=== PATIENT | male | born 1940 | race Caucasian/White ===

== ENCOUNTER 2019-04-28 07:45 | Emergency (ER) | payer MEDICARE, OTHER ==
[~2019-04-28] VITALS: Ht 177.8 cm; Wt 102.1 kg
[~2019-04-28 07:45] MED LIST: ALLO300 PO; AMLO5 PO; ATEN25 PO; Aspir 8181 MG PO; Aspirin EC81 MG PO; BISA5EC; CEPH500 PO; CYAN100; Calcitriol0.25 MCG; DOCU100 PO; DULO60 PO; ENOX120I SC; FISH1000; FISH1000 PO; GLIP5 PO; HYDR1TAB94 PO; LEVFLO500 PO; LOVA40 PO; NIAC500 PO; TOCO400; TOCO400 PO; TRIA80TC TOP; WARF5 PO; ZESTORETIC 20-121 EA PO
[2019-04-28] MEDS ORDERED: ZESTORETIC 20-121 EA (08:04)
[2019-04-28] MEDS ORDERED: LOVA40 (08:04)
[2019-04-28] MEDS ORDERED: GLIP5ER PO (08:04)
[2019-04-28] MEDS ORDERED: ATEN25 PO (08:04)
[2019-04-28] MEDS ORDERED: CLOP75 PO (08:05)
[2019-04-28] MEDS ORDERED: DULO30 PO (08:05)
[2019-04-28 08:10] LABS: BASOPHILS ABSOLUTE AUTO 0.03 K/mm3 (0.00-0.23); BASOPHILS PERCENT AUTO 1 % (0-2); EOSINOPHILS ABSOLUTE AUTO 0.13 K/mm3 (0.00-0.68); EOSINOPHILS PERCENT AUTO 2 % (0-6); Hematocrit 47.7 % (37.0-53.0); IMMATURE GRAN ABSOLUTE AUTO 0.03 K/mm3 (0.00-0.10); IMMATURE GRAN PERCENT AUTO 1 % (0-1); LYMPHOCYTES ABSOLUTE AUTO 0.74 K/mm3 (0.84-5.20); LYMPHOCYTES PERCENT AUTO 13 % (21-46); MONOCYTES ABSOLUTE AUTO 0.48 K/mm3 (0.16-1.47); MONOCYTES PERCENT AUTO 8 % (4-13); Mean Corpuscular HGB 35.8 pg (26.0-34.0); Mean Corpuscular HGB Conc 33.5 g/dL (31.5-36.5); Mean Corpuscular Volume 107 fL (80-100); Mean Platelet Volume 9.8 fL (9.1-12.4); NEUTROPHILS ABSOLUTE AUTO 4.36 K/mm3 (1.96-9.15); NEUTROPHILS PERCENT AUTO 76 % (41-73); Platelet Count 127 K/mm3 (150-400); RDW Coefficient Variation 13.5 % (11.7-14.2); RDW Standard Deviation 53.7 fL (35.1-46.3); Red Blood Cell Count 4.47 M/mm3 (4.30-5.90); White Blood Cell Count 5.77 K/mm3 (4.00-11.30)
[2019-04-28 09:19] LABS: Albumin, Blood 3.7 g/dL (3.4-5.0); Albumin/Globulin Ratio 1.1 (0.8-1.8); Bilirubin, Total 0.7 mg/dL (0.1-1.0); Bun/Creatinine Ratio 16.7 (12.0-20.0); Calcium, Blood 9.1 mg/dL (8.5-10.1); Creatinine, Blood 1.32 mg/dL (0.60-1.20); Globulin, Blood 3.5 g/dL (2.2-4.0); Magnesium, Blood 1.8 mg/dL (1.6-2.4); Potassium, Blood 4.2 mmol/L (3.5-5.5); Total Protein, Blood 7.2 g/dL (6.4-8.2)
== END 2019-04-28 10:40 | disposition home or self-care (01) ==
LOC: ER 07:45
PROVIDERS: Emergency Medicine
DX: I48.91 Unspecified atrial fibrillation (principal); Z79.899 Other long term (current) drug therapy; Z86.73 Personal history of transient ischemic attack (TIA), and cerebral infarction without residual deficits; E11.9 Type 2 diabetes mellitus without complications; I10 Essential (primary) hypertension; Z87.891 Personal history of nicotine dependence
CPT/HCPCS: 80053; 83735; 85025; 93005; 93010; 99284-25

== ENCOUNTER 2019-09-06 06:53 | Day surgery (SDC) | payer MEDICARE, OTHER ==
[~2019-09-06] VITALS: Ht 177.8 cm; Wt 102.0 kg
[~2019-09-06 06:53] MED LIST changes: +CALC.25 PO; +CLOP75 PO; +DULO30 PO; +ELIQUIS5 MG PO; +GENPREOPSU; +GLIP5ER PO; +KETO60I IM; +LOVA40; +TRIA15CR3; +ZESTORETIC 20-121 EA
[2019-09-06] MEDS ORDERED: KETOROLAC TROMET5 ML (07:24)
--- NOTE | 2019-09-06 11:30 | NUR ---
attempted to release 2mL more of air from TRband. oozing noted. replaced the 2mL air and oozing stopped. will attempt again in 20-30mins. pts r femoral site with no bleeding, oozing or hematoma. vss. will continue to monitor.
--- NOTE | 2019-09-06 14:01 | NUR ---
PT UP TO RESTROOM AND DRESSED SELF WITH SOME HELP FROM WITH NO COMPLICATIONS. WANDY DRESSING LEFT INPLACE. NO ADDITIONAL BLEEDING. NO OOZING OR HEMATOMA NOTED. TR BAND REMOVED AND DOT CLOTH BANDAGED PLACED OVER ACCESS SITE. WHITE BOARD PLACED BACK ON WRIST. PTS R ARM PLACED IN SLING. PT AND EDUCATED ON S/SX OF BLEEDING. BOTH STATE THEIR UNDERSTANDING OF DC AND CARE INSTRUCTIONS. IV DCD WITH CATH INTACT. PT AOX4. ABLE TO SPEAK IN FULL SENTENCES. PT BROUGHT TO VEHICLE VIA WHEELCHAIR BY RN. PT AND DENY ANY QUESTIONS OR CONCERNS UPON DISCHARGE. VSS.
== END 2019-09-06 13:45 | disposition home or self-care (01) ==
LOC: MHTC 06:53
PROC: 4A023N7 Measurement of Cardiac Sampling and Pressure, Left Heart, Percutaneous Approach (ICD-10-PCS; principal; 2019-09-06)
PROC: B201YZZ Plain Radiography of Multiple Coronary Arteries using Other Contrast (ICD-10-PCS; principal; 2019-09-06)
DX: I25.5 Ischemic cardiomyopathy (principal); I25.10 Atherosclerotic heart disease of native coronary artery without angina pectoris; I35.1 Nonrheumatic aortic (valve) insufficiency; I71.4 Abdominal aortic aneurysm, without rupture; E11.9 Type 2 diabetes mellitus without complications; I10 Essential (primary) hypertension; E78.5 Hyperlipidemia, unspecified; E66.01 Morbid (severe) obesity due to excess calories; Z86.73 Personal history of transient ischemic attack (TIA), and cerebral infarction without residual deficits; Z79.01 Long term (current) use of anticoagulants; Z79.84 Long term (current) use of oral hypoglycemic drugs; Z79.899 Other long term (current) drug therapy; Z87.891 Personal history of nicotine dependence; Z68.32 Body mass index [BMI] 32.0-32.9, adult
CPT/HCPCS: 36140; 75710; 93005; 93010; 93454; 99152; 99153; C1769; C1894; J1644; J2250; J3010; J7030; Q9967

== ENCOUNTER 2020-02-10 13:55 | Inpatient (IN) | payer MEDICARE, OTHER ==
[~2020-02-10] VITALS: Ht 177.8 cm; Wt 95.9 kg
[~2020-02-10 13:55] MED LIST changes: +ALLO100 PO; +ELIQUIS2.5 MG PO; -ELIQUIS5 MG PO; +KETOROLAC TROMET5 ML; -LOVA40
[2020-02-10 14:53] LABS: BASOPHILS ABSOLUTE AUTO 0.06 K/mm3 (0.00-0.23); BASOPHILS PERCENT AUTO 1 % (0-2); EOSINOPHILS ABSOLUTE AUTO 0.31 K/mm3 (0.00-0.68); EOSINOPHILS PERCENT AUTO 4 % (0-6); Hematocrit 40.7 % (37.0-53.0); Hemoglobin 13.6 g/dL (13.5-17.5); IMMATURE GRAN ABSOLUTE AUTO 0.05 K/mm3 (0.00-0.10); IMMATURE GRAN PERCENT AUTO 1 % (0-1); LYMPHOCYTES ABSOLUTE AUTO 1.19 K/mm3 (0.84-5.20); LYMPHOCYTES PERCENT AUTO 15 % (21-46); MONOCYTES ABSOLUTE AUTO 0.83 K/mm3 (0.16-1.47); MONOCYTES PERCENT AUTO 10 % (4-13); Mean Corpuscular HGB 35.1 pg (26.0-34.0); Mean Corpuscular HGB Conc 33.4 g/dL (31.5-36.5); Mean Corpuscular Volume 105 fL (80-100); Mean Platelet Volume 9.7 fL (9.1-12.4); NEUTROPHILS ABSOLUTE AUTO 5.79 K/mm3 (1.96-9.15); NEUTROPHILS PERCENT AUTO 70 % (41-73); Platelet Count 208 K/mm3 (150-400); RDW Coefficient Variation 14.2 % (11.7-14.2); RDW Standard Deviation 54.7 fL (35.1-46.3); Red Blood Cell Count 3.87 M/mm3 (4.30-5.90); White Blood Cell Count 8.23 K/mm3 (4.00-11.30)
[2020-02-10 15:16] LABS: Albumin, Blood 3.7 g/dL (3.4-5.0); Albumin/Globulin Ratio 0.9 (0.8-1.8); Calcium, Blood 9.3 mg/dL (8.5-10.1); Creatinine, Blood 1.55 mg/dL (0.60-1.20); Globulin, Blood 3.9 g/dL (2.2-4.0); Potassium, Blood 3.9 mmol/L (3.5-5.5); Total Protein, Blood 7.6 g/dL (6.4-8.2)
[2020-02-10 15:17] LABS: Troponin I 0.034 ng/mL (0.000-0.040)
[2020-02-10] MEDS ORDERED: HYDROCHLOROTH12.5 MG PO (15:20)
[2020-02-10] MEDS ORDERED: Prinivil10 MG PO (15:20)
[2020-02-10] MEDS ORDERED: ATEN50 PO (15:21)
[2020-02-10] MEDS ORDERED: CLOP75 PO (15:39)
--- NOTE | 2020-02-10 17:48 | NUR ---
pt arrived to pcu 12 via gurney from ed, report recieved, pt able to stand and transfer to bed indep, a/ox3, [place], has hearing aides, but is at home, cooperative with care, follows commands well, denies pain, reports he was very sob when he arrived to ed but is feeling much better now. he is sating 95% on r/a, lungs are clear t/o, resp even and unlabored, no cough noted, hrirr, tele in place running afib per monitor, see strip, 2+ edema noted to b/l le, ppp faint, cap refill <3sec, vs stable, afebrile, iv site is clear and patent, s.l. btx4, abd flat soft nontender, voids without diff, skin c/w/d, kristy edmond, call light in reach.
--- NOTE | 2020-02-10 22:21 | NUR ---
CARE ASSUMPTION PT A&O X4, PLEASANT & COOPERATIVE. VSS. MONITOR SHOWS AFIB, HR 90's-110's. LUNG SOUNDS CLEAR. SPO2 > 92% ON RA. PT DENIES FURTHER SOB OR COUGH. BLE W/ TRACE EDEMA. PT VOIDING CLEAR YELLOW URINE. PT INDEPENDENT IN RM. WILL CONTINUE TO MONITOR & PROVIDE CARE.
--- NOTE | 2020-02-11 06:19 | NUR ---
SHIFT SUMMARY PT CONTINUES TO BE A&O X4, PLEASANT & COOPERATIVE. INDEPENDENT IN RM. VSS. NO EVENTS OVER NIGHT. MONITOR SHOWS AFIB, HR 90's-110's. LUNG SOUNDS CLEAR W/ PT REPORT OF OCCASSIONAL WHEEZING. SPO2 > 92% ON RA. PT DENIES COUGH. WILL CONTINUE TO MONITOR & PROVIDE CARE UNTIL REPORT OFF TO DAY SHIFT RN.
[2020-02-11 06:57] LABS: BASOPHILS ABSOLUTE AUTO 0.04 K/mm3 (0.00-0.23); BASOPHILS PERCENT AUTO 1 % (0-2); EOSINOPHILS ABSOLUTE AUTO 0.27 K/mm3 (0.00-0.68); EOSINOPHILS PERCENT AUTO 4 % (0-6); Hematocrit 38.9 % (37.0-53.0); Hemoglobin 12.5 g/dL (13.5-17.5); IMMATURE GRAN ABSOLUTE AUTO 0.03 K/mm3 (0.00-0.10); IMMATURE GRAN PERCENT AUTO 0 % (0-1); LYMPHOCYTES ABSOLUTE AUTO 0.72 K/mm3 (0.84-5.20); LYMPHOCYTES PERCENT AUTO 10 % (21-46); MONOCYTES ABSOLUTE AUTO 0.61 K/mm3 (0.16-1.47); MONOCYTES PERCENT AUTO 8 % (4-13); Mean Corpuscular HGB 34.2 pg (26.0-34.0); Mean Corpuscular HGB Conc 32.1 g/dL (31.5-36.5); Mean Corpuscular Volume 106 fL (80-100); Mean Platelet Volume 9.7 fL (9.1-12.4); NEUTROPHILS PERCENT AUTO 77 % (41-73); Platelet Count 172 K/mm3 (150-400); RDW Coefficient Variation 14.6 % (11.7-14.2); RDW Standard Deviation 56.4 fL (35.1-46.3); Red Blood Cell Count 3.66 M/mm3 (4.30-5.90); White Blood Cell Count 7.27 K/mm3 (4.00-11.30)
[2020-02-11 07:13] LABS: Bun/Creatinine Ratio 21.9 (12.0-20.0); Calcium, Blood 9.1 mg/dL (8.5-10.1); Creatinine, Blood 1.69 mg/dL (0.60-1.20); Potassium, Blood 4.3 mmol/L (3.5-5.5)
--- NOTE | 2020-02-11 09:20 | NUR ---
ASSUMED CARE: REPORT RECIEVED FROM CATARINA ANDERSON. CATARINA AT BEDSIDE PERFORMING VITALS. NO ACUTE NEEDS OR CONCERNS.
--- NOTE | 2020-02-11 16:29 | NUR ---
pt spoke with bettina I called her back to review his needs. She will follow up with his cardiaologist. She states he weighs himself everyday and they see doctor dodie regularly. He has not been complaining of pain or constipation or airhunger. Pt sounded frail on phone and she wanted to get off phone. Will speak with her again about AD and polst. May need to see wh next of kin is to help pt and his .
--- NOTE | 2020-02-11 18:12 | NUR ---
SHIFT SUMMARY: PT REQUIRES EDUCATION ON CHF BECAUSE HE WAS UNAWARE OF HIS DIAGNOSIS. HAS BEEN GIVEN AN UPDATE AND PALLIATIVE CARE PLANS TO DISCUSS FURTHER PLANS WITH WELL. PT SOB WITH EXERTION. DENIES NEEDS OR CONCERNS. ECHO COMPLETED.
--- NOTE | 2020-02-11 18:56 | NUR ---
Echocardiogram completed.
[2020-02-12 04:05] LABS: BASOPHILS ABSOLUTE AUTO 0.04 K/mm3 (0.00-0.23); BASOPHILS PERCENT AUTO 1 % (0-2); EOSINOPHILS ABSOLUTE AUTO 0.44 K/mm3 (0.00-0.68); EOSINOPHILS PERCENT AUTO 6 % (0-6); Hematocrit 41.3 % (37.0-53.0); Hemoglobin 13.3 g/dL (13.5-17.5); IMMATURE GRAN ABSOLUTE AUTO 0.04 K/mm3 (0.00-0.10); IMMATURE GRAN PERCENT AUTO 1 % (0-1); LYMPHOCYTES ABSOLUTE AUTO 0.98 K/mm3 (0.84-5.20); LYMPHOCYTES PERCENT AUTO 14 % (21-46); MONOCYTES ABSOLUTE AUTO 0.63 K/mm3 (0.16-1.47); MONOCYTES PERCENT AUTO 9 % (4-13); Mean Corpuscular HGB Conc 32.2 g/dL (31.5-36.5); Mean Corpuscular Volume 106 fL (80-100); Mean Platelet Volume 9.8 fL (9.1-12.4); NEUTROPHILS ABSOLUTE AUTO 5.05 K/mm3 (1.96-9.15); NEUTROPHILS PERCENT AUTO 70 % (41-73); Platelet Count 191 K/mm3 (150-400); RDW Coefficient Variation 14.4 % (11.7-14.2); RDW Standard Deviation 55.8 fL (35.1-46.3); Red Blood Cell Count 3.91 M/mm3 (4.30-5.90); White Blood Cell Count 7.18 K/mm3 (4.00-11.30)
[2020-02-12 04:27] LABS: Albumin, Blood 3.6 g/dL (3.4-5.0); Anion Gap 7 mmol/L (6-16); Blood Urea Nitrogen 44 mg/dL (8-24); Bun/Creatinine Ratio 25.6 (12.0-20.0); CO2, Blood 27 mmol/L (21-32); Calcium, Blood 9.3 mg/dL (8.5-10.1); Chloride, Blood 103 mmol/L (98-108); Creatinine, Blood 1.72 mg/dL (0.60-1.20); Glomerular Filtration Rate 41 (60-); Glucose, Blood 130 mg/dL (70-99); Phosphorus, Blood 4.1 mg/dL (2.5-4.9); Potassium, Blood 4.4 mmol/L (3.5-5.5); Sodium, Blood 137 mmol/L (136-145)
--- NOTE | 2020-02-12 07:26 | NUR ---
SHIFT SUMMARY PATIENT PLEASENT AND COOPERATIVE THROUGHOUT THE NIGHT. PATIENT APPEARED TO NAP ON AND OFF LAST NIGHT. PATIENT APPEARED TO BE ABLE TO MOVE SELF ABOUT IN BED WELL. PATIENT ALERT AND ORIENTED BUT IS FORGETFUL AT TIMES, ESPCIALLY WITH NEW INFORMATION. PATIENT REPORTS HE HAS BEEN THAT WAY, "SINCE THE STROKE." PATIENT PROVIDED WITH APPROPRIATE EDUCATION NEEDED. VITAL SIGNS CHARTED. PATIENT CURRENTLY APPEARS TO BE ASLEEP. REPORT GIVEN TO ONCOMING RN.
--- NOTE | 2020-02-12 07:33 | NUR ---
ASSUMED CARE: PT RESTING QUIETLY AT THIS TIME. AFIB 90S ON TELE AT THIS TIME. NO ACUTE NEEDS OR CONCERNS.
[2020-02-12 09:48] LABS: Adenovirus Not Detected (NOT DETECT); Bordetella pertussis Not Detected (NOT DETECT); Chlamydophila pneumoniae Not Detected (NOT DETECT); Coronavirus 229E Not Detected (NOT DETECT); Coronavirus HKU1 Not Detected (NOT DETECT); Coronavirus NL63 Not Detected (NOT DETECT); Coronavirus OC43 Not Detected (NOT DETECT); Human Metapneumovirus Not Detected (NOT DETECT); Human Rhinovirus/Enterovirus Not Detected (NOT DETECT); Influenza A/2009-H1 Not Detected (NOT DETECT); Influenza A/H1 Not Detected (NOT DETECT); Influenza A/H3 Not Detected (NOT DETECT); Influenza B Not Detected (NOT DETECT); Mycoplasma pneumoniae Not Detected (NOT DETECT); Parainfluenza Virus 1 Not Detected (NOT DETECT); Parainfluenza Virus 2 Not Detected (NOT DETECT); Parainfluenza Virus 3 Not Detected (NOT DETECT); Parainfluenza Virus 4 Not Detected (NOT DETECT); Respiratory Syncytial Virus Not Detected (NOT DETECT)
--- NOTE | 2020-02-12 17:45 | NUR ---
SHIFT SUMMARY: PT NOW MED/TELE STATUS. ON ROOM AIR, DIURESIS ORDERED. INDEPENDENT IN ROOM. FORGETFUL HE STATES BECAUSE OF HIS STROKE HISTORY. DENIES NEEDS OR CONCERNS AT THIS TIME.
[2020-02-13 04:11] LABS: BASOPHILS ABSOLUTE AUTO 0.04 K/mm3 (0.00-0.23); BASOPHILS PERCENT AUTO 1 % (0-2); EOSINOPHILS ABSOLUTE AUTO 0.46 K/mm3 (0.00-0.68); EOSINOPHILS PERCENT AUTO 7 % (0-6); Hematocrit 41.2 % (37.0-53.0); Hemoglobin 13.2 g/dL (13.5-17.5); IMMATURE GRAN ABSOLUTE AUTO 0.04 K/mm3 (0.00-0.10); IMMATURE GRAN PERCENT AUTO 1 % (0-1); LYMPHOCYTES ABSOLUTE AUTO 0.76 K/mm3 (0.84-5.20); LYMPHOCYTES PERCENT AUTO 12 % (21-46); MONOCYTES ABSOLUTE AUTO 0.59 K/mm3 (0.16-1.47); MONOCYTES PERCENT AUTO 9 % (4-13); Mean Corpuscular HGB 33.8 pg (26.0-34.0); Mean Corpuscular Volume 106 fL (80-100); Mean Platelet Volume 9.7 fL (9.1-12.4); NEUTROPHILS ABSOLUTE AUTO 4.47 K/mm3 (1.96-9.15); NEUTROPHILS PERCENT AUTO 70 % (41-73); Platelet Count 189 K/mm3 (150-400); RDW Coefficient Variation 14.3 % (11.7-14.2); RDW Standard Deviation 56.2 fL (35.1-46.3); White Blood Cell Count 6.36 K/mm3 (4.00-11.30)
[2020-02-13 04:30] LABS: Albumin, Blood 3.4 g/dL (3.4-5.0); Anion Gap 8 mmol/L (6-16); Blood Urea Nitrogen 46 mg/dL (8-24); Bun/Creatinine Ratio 26.3 (12.0-20.0); CO2, Blood 26 mmol/L (21-32); Calcium, Blood 9.3 mg/dL (8.5-10.1); Chloride, Blood 102 mmol/L (98-108); Creatinine, Blood 1.75 mg/dL (0.60-1.20); Glomerular Filtration Rate 40 (60-); Glucose, Blood 135 mg/dL (70-99); Phosphorus, Blood 4.3 mg/dL (2.5-4.9); Potassium, Blood 4.4 mmol/L (3.5-5.5); Sodium, Blood 136 mmol/L (136-145)
--- NOTE | 2020-02-13 06:07 | NUR ---
SHIFT SUMMARY PATIENT PLEASENT AND COOPERATIVE THROUGHOUT THE NIGHT. PATIENT APPEARED TO SLEEP WELL THROUGHOUT THE NIGHT. PATIENT CONTINUES TO BE FORGETFUL AT TIMES. PATIENT ALSO MIXES UP WORDS AT TIMES. HE STATES THAT HE SOMETIMES DOES THAT SINCE "THE STROKE" WELL THE MEMORY DIFFICULTIES HE HAS HAD SINCE THEN. VITAL SIGNS CHARTED, WILL CONTINUE TO MONITOR PATIENT AND REPORT TO ONCOMING RN.
[2020-02-13] MEDS ORDERED: Florastor250 MG PO (12:39)
[2020-02-13] MEDS ORDERED: FURO20 PO (12:40)
[2020-02-13] MEDS ORDERED: LEVO750 PO (12:42)
--- NOTE | 2020-02-13 13:38 | NUR ---
spouce call and discharged Reviewed discharge instructions with pt. Medications faxed to [facility] per request. Call pt to review discharge instructions and medications with her. Left ue iv removed. Pressure dressing applied. Pt independent in room. Continue POT>
== END 2020-02-13 14:25 | disposition home or self-care (01) | DRG 291 ==
LOC: ER 13:55 → PCU 16:24
PROVIDERS: Family Medicine; Nurse Practitioner Acute Care; Physician Assistant; ADMIT Internal Medicine
DX: I13.0 Hypertensive heart and chronic kidney disease with heart failure and stage 1 through stage 4 chronic kidney disease, or unspecified chronic kidney disease (principal); I50.43 Acute on chronic combined systolic (congestive) and diastolic (congestive) heart failure; J18.9 Pneumonia, unspecified organism; I48.20 Chronic atrial fibrillation, unspecified; E11.22 Type 2 diabetes mellitus with diabetic chronic kidney disease; E11.40 Type 2 diabetes mellitus with diabetic neuropathy, unspecified; N18.3 Chronic kidney disease, stage 3 (moderate); Z79.4 Long term (current) use of insulin; K46.9 Unspecified abdominal hernia without obstruction or gangrene; D63.1 Anemia in chronic kidney disease; E78.5 Hyperlipidemia, unspecified; I25.10 Atherosclerotic heart disease of native coronary artery without angina pectoris; Z95.5 Presence of coronary angioplasty implant and graft; Z86.73 Personal history of transient ischemic attack (TIA), and cerebral infarction without residual deficits; Z79.01 Long term (current) use of anticoagulants; R79.89 Other specified abnormal findings of blood chemistry
CPT/HCPCS: 0099U; 36415; 71045; 80048; 80053; 80069; 82947; 83880; 84145; 84443; 84484; 85025; 93005; 93010; 93306; 93971; 96374; 96375; 99285-25; A9270; A9270-GY; J0456; J0696; J1940; J7050; U0003

== ENCOUNTER 2020-07-12 18:14 | Inpatient (IN) | payer MEDICARE, OTHER ==
[~2020-07-12] VITALS: Ht 177.8 cm; Wt 102.6 kg
[~2020-07-12 18:14] MED LIST changes: -ALLO100 PO; -CALC.25 PO; -ELIQUIS2.5 MG PO; +Florastor250 MG PO; -GLIP5ER PO; +HYDROCHLOROTH12.5 MG PO; +LEVO750 PO
[2020-07-12 19:24] LABS: BASOPHILS ABSOLUTE AUTO 0.02 K/mm3 (0.00-0.23); BASOPHILS PERCENT AUTO 0 % (0-2); EOSINOPHILS ABSOLUTE AUTO 0.11 K/mm3 (0.00-0.68); EOSINOPHILS PERCENT AUTO 2 % (0-6); Hematocrit 36.7 % (37.0-53.0); Hemoglobin 11.1 g/dL (13.5-17.5); IMMATURE GRAN ABSOLUTE AUTO 0.03 K/mm3 (0.00-0.10); IMMATURE GRAN PERCENT AUTO 1 % (0-1); LYMPHOCYTES ABSOLUTE AUTO 0.55 K/mm3 (0.84-5.20); LYMPHOCYTES PERCENT AUTO 10 % (21-46); MONOCYTES ABSOLUTE AUTO 0.51 K/mm3 (0.16-1.47); MONOCYTES PERCENT AUTO 10 % (4-13); Mean Corpuscular HGB 31.4 pg (26.0-34.0); Mean Corpuscular HGB Conc 30.2 g/dL (31.5-36.5); Mean Corpuscular Volume 104 fL (80-100); Mean Platelet Volume 10.4 fL (9.1-12.4); NEUTROPHILS ABSOLUTE AUTO 4.15 K/mm3 (1.96-9.15); NEUTROPHILS PERCENT AUTO 77 % (41-73); NRBC ABSOLUTE 0.02 K/mm3 (0.00-0.02); NRBC Auto 0.4 /100 WBC (0.0-0.2); Platelet Count 178 K/mm3 (150-400); RDW Coefficient Variation 17.7 % (11.7-14.2); RDW Standard Deviation 67.1 fL (35.1-46.3); Red Blood Cell Count 3.53 M/mm3 (4.30-5.90); White Blood Cell Count 5.37 K/mm3 (4.00-11.30)
[2020-07-12 19:44] LABS: Albumin, Blood 3.5 g/dL (3.4-5.0); Albumin/Globulin Ratio 0.9 (0.8-1.8); Bilirubin, Total 0.8 mg/dL (0.1-1.0); Bun/Creatinine Ratio 24.9 (12.0-20.0); Calcium, Blood 9.3 mg/dL (8.5-10.1); Creatinine, Blood 1.85 mg/dL (0.60-1.20); Globulin, Blood 3.8 g/dL (2.2-4.0); Total Protein, Blood 7.3 g/dL (6.4-8.2); Troponin I 0.057 ng/mL (0.000-0.040)
[2020-07-12] MEDS ORDERED: CALC.25 PO (22:04)
[2020-07-12] MEDS ORDERED: ATEN25 PO (22:04)
[2020-07-12] MEDS ORDERED: LISINOPRIL-HCT1 EACH PO (22:05)
[2020-07-12] MEDS ORDERED: ALLO300 PO (22:06)
[2020-07-12] MEDS ORDERED: ELIQUIS2.5 MG PO (22:06)
[2020-07-12] MEDS ORDERED: GLIP5 PO (22:07)
[2020-07-12] MEDS ORDERED: LOVA40 PO (22:08)
[2020-07-12] MEDS ORDERED: FURO20 PO (22:09)
[2020-07-12] MEDS ORDERED: ALBU90OI INH (22:10)
[2020-07-12 23:19] LABS: International Normalized Ratio 1.17; Prothrombin Time Results 12.4 Sec (9.7-11.5)
--- NOTE | 2020-07-13 01:58 | NUR ---
ASSUMED CARE OF PATIENT AT APPROXIMATELY 0015 FROM ED RN DEJAN Keys RN. PATIENT ARRIVED TO UNIT VIA STRECHER; TRANSFER FROM ED TO PCU STRETCHER WITH ONE ASSIST. PATIENT DYSPNEIC WITH ACTIVITY; PATIENT REQUESTS BREATHING TREATMENT UPON ARRIVAL; AUDIBLE WHEEZES. AFIB ON TELE; OXYGEN SATURATION ABOVE 90% ON ROOM AIR. PIV S/L. ADMISSION COMPLETE EXCEPT FOR MED REC; PATIENT'S ADMINISTERS MEDICATIONS. PATIENT CURRENTLY RESTING IN BED; CALL LIGHT IN REACH; BED IN LOWEST POSISTION; BED ALARM ON; WILL CONTINUE TO MONITOR AND ASSESS UNTIL END OF SHIFT.
--- NOTE | 2020-07-13 05:54 | NUR ---
PATIENT'S URINE HAS BLOOD NOTED IN IT. PATIENT REPORTS THIS IS NEW. VSS. PATIENT SLEPT ABOUT FIVE HOURS. WILL CONTINUE TO MONITOR AND ASSESS UNTIL END OF SHIFT.
[2020-07-13 07:33] LABS: Hematocrit 38.3 % (37.0-53.0); Hemoglobin 11.5 g/dL (13.5-17.5); Mean Corpuscular HGB 31.3 pg (26.0-34.0); Mean Corpuscular Volume 104 fL (80-100); Mean Platelet Volume 10.1 fL (9.1-12.4); NRBC ABSOLUTE 0.12 K/mm3 (0.00-0.02); NRBC Auto 2.1 /100 WBC (0.0-0.2); Platelet Count 154 K/mm3 (150-400); RDW Coefficient Variation 17.5 % (11.7-14.2); Red Blood Cell Count 3.67 M/mm3 (4.30-5.90); White Blood Cell Count 5.74 K/mm3 (4.00-11.30)
[2020-07-13 07:57] LABS: Bun/Creatinine Ratio 25.4 (12.0-20.0); Calcium, Blood 9.1 mg/dL (8.5-10.1); Creatinine, Blood 1.77 mg/dL (0.60-1.20); Potassium, Blood 3.7 mmol/L (3.5-5.5)
[2020-07-13 08:03] LABS: BAND PERCENT MAN 1 % (0-8); BASOPHILS PERCENT MAN 0 % (0-2); EOSINOPHILS ABSOLUTE MAN 0.05 K/mm3 (0.00-0.68); EOSINOPHILS PERCENT MAN 1 % (0-6); LYMPHOCYTES ABSOLUTE MAN 0.11 K/mm3 (0.84-5.20); LYMPHOCYTES PERCENT MAN 2 % (21-46); MONOCYTES PERCENT MAN 0 % (4-13); NEUTROPHILS ABSOLUTE MAN 5.56 K/mm3 (1.96-9.15); SEG NEUTROPHILS PERCENT MAN 96 % (41-73); TOTAL CELLS COUNTED 100
--- NOTE | 2020-07-13 15:46 | NUR ---
SHIFT NOTE PT HAS BEEN ALERT, CONFUSED, AND IS A POOR HISTORIAN T/O THE DAY. PT WITH WHEEZE THAT SPOUSE STS IS HIS BASELINE SINCE SEPTEMBER OF THIS YEAR. PT WITH RATE OF 118 IN AFIB AT THE [facility] OF THIS NOTE. PT HAS BEEN TO CT TODAY, RESULTS ARE PENDING AT THIS TIME. DID BRING MEDCIATION LIST IN, WHICH WILL BE UPDATED. PT HAS BEEN RESTING WELL IN BED T/O THE DAY, DENIES CP OR SOB. PT HAS BEEN LAUGHING AND JOKING WITH STAFF T/O THE DAY. VSS
[2020-07-13] MEDS ORDERED: ATEN25 PO (16:00)
[2020-07-13] MEDS ORDERED: DULO60 PO (16:01)
[2020-07-13] MEDS ORDERED: PREDNISOLONE ACE5 ML OP (16:02)
[2020-07-13] MEDS ORDERED: CLOP75 PO (16:02)
[2020-07-13] MEDS ORDERED: D-MANNOSE1 GM MC (16:04)
--- NOTE | 2020-07-14 06:41 | NUR ---
SUMMARY PT HAD UNEVENTFUL NIGHT. ALERT AND ORIENTED THROUGH MOST OF SHIFT, FEW MOMENTS OF MILD FORGETFULLNESS/CONFUSION. ABLE TO REDIRECT PT EASILY. 2 PERSON ASSIST FOR URINATION, PT PREFERS STANDING. FORCED EXP WHEEZING WHEN PT AWAKE, HOWEVER LUNG SOUNDS ARE DIMINISHED.
[2020-07-14 08:55] LABS: BASOPHILS ABSOLUTE AUTO 0.03 K/mm3 (0.00-0.23); BASOPHILS PERCENT AUTO 0 % (0-2); EOSINOPHILS ABSOLUTE AUTO 0.08 K/mm3 (0.00-0.68); EOSINOPHILS PERCENT AUTO 1 % (0-6); Hematocrit 33.9 % (37.0-53.0); Hemoglobin 9.9 g/dL (13.5-17.5); IMMATURE GRAN ABSOLUTE AUTO 0.03 K/mm3 (0.00-0.10); IMMATURE GRAN PERCENT AUTO 0 % (0-1); LYMPHOCYTES ABSOLUTE AUTO 0.39 K/mm3 (0.84-5.20); LYMPHOCYTES PERCENT AUTO 5 % (21-46); MONOCYTES ABSOLUTE AUTO 0.59 K/mm3 (0.16-1.47); MONOCYTES PERCENT AUTO 7 % (4-13); Mean Corpuscular HGB 30.5 pg (26.0-34.0); Mean Corpuscular HGB Conc 29.2 g/dL (31.5-36.5); Mean Corpuscular Volume 104 fL (80-100); Mean Platelet Volume 10.2 fL (9.1-12.4); NEUTROPHILS ABSOLUTE AUTO 7.21 K/mm3 (1.96-9.15); NEUTROPHILS PERCENT AUTO 86 % (41-73); NRBC ABSOLUTE 0.02 K/mm3 (0.00-0.02); NRBC Auto 0.2 /100 WBC (0.0-0.2); Platelet Count 135 K/mm3 (150-400); RDW Coefficient Variation 17.8 % (11.7-14.2); RDW Standard Deviation 67.3 fL (35.1-46.3); Red Blood Cell Count 3.25 M/mm3 (4.30-5.90); White Blood Cell Count 8.33 K/mm3 (4.00-11.30)
[2020-07-14 09:11] LABS: Bun/Creatinine Ratio 24.5 (12.0-20.0); Creatinine, Blood 2.2 mg/dL (0.60-1.20); Magnesium, Blood 2.1 mg/dL (1.6-2.4); Potassium, Blood 4.2 mmol/L (3.5-5.5)
--- NOTE | 2020-07-14 14:14 | NUR ---
Brief visit with Pt this afternoon. Pt is difficult to understand between mumbling of words and word salad. Pt appears moderaley dyspneic as evidenced by work of breathing and audible wheezing. Spoke with Bedside RN Viktoriya, discussed case and relayed symptoms. Attempted to call Pt's spouse. Left message of voicemail with request for a return phone call. Palliative Care will remain available.
--- NOTE | 2020-07-14 16:08 | NUR ---
PT WAS ABLE TO VOID AFTER MANY ATTEMPTS, VOIDED 275ML OF JOHN URINE NO BLOOD WAS NOTED IN URINE
--- NOTE | 2020-07-14 17:47 | NUR ---
SHIFT NOTE PT HAS BECOME STEADILY MORE CONFUSED T/O THE SHIFT. PT HAS AN EPISODE OF URINARY RETENTION WHICH RESOLVED WITH REPOSITIONING MULTIPLE TIMES. JOHN URINE NOTED, FREE OF BLOOD. PT HAS BEEN RESTING WELL IN BED T/O THE DAY. VSS. SOB HAS BEEN INTERMITTENTENT T/O THE DAY, O2 NEED HAS NOT INCREASED. HEAD CT WAS ORDERED TODAY PT HAD AN OUTPT HEAD CT ORDERED FOR NEXT WEEK. RT HAS BEEN IN TO ADMINISTER BREATHING TREATMENTS NEEDED
--- NOTE | 2020-07-15 01:31 | NUR ---
UPDATE THIS RN CALLED TO ROOM TO CHECK PT BY RN HOUSE SUPERVISOR W/ HR IN 40'S; PT WAS FOUND TO W/ O2 SATS 72, W/ NC FOUND ON THE FLOOR; PT LETHARGIC, MINIMAL RESPONSE TO PAINFUL STIMULI; NON-REBREATHER PLACED ON PT AND PT RECOVERED WITHIN A COUPLE MINUTES; VSS; HR 110; PT INCONTINENT; LINEN AND BRIEF CHANGE PROVIDED AND PT PARTICIPATED IN ROLLING SIDE TO SIDE; CALL LIGHT IN REACH; BED IN LOWEST POSITION; UPDATE GIVEN TO PT'S RN.
--- NOTE | 2020-07-15 02:00 | NUR ---
UPDATE ASSESSED PT AFTER HYPOXIC EPISODE, MENTATION REMAINS UNCHANGED FROM START OF SHIFT AND ABLE TO STATE NAME AND . PT APPEARS VERY SLEEPY AT THIS TIME.
[2020-07-15 03:34] LABS: BASOPHILS ABSOLUTE AUTO 0.04 K/mm3 (0.00-0.23); BASOPHILS PERCENT AUTO 1 % (0-2); EOSINOPHILS ABSOLUTE AUTO 0.07 K/mm3 (0.00-0.68); EOSINOPHILS PERCENT AUTO 1 % (0-6); Hematocrit 33.6 % (37.0-53.0); Hemoglobin 10.2 g/dL (13.5-17.5); IMMATURE GRAN ABSOLUTE AUTO 0.03 K/mm3 (0.00-0.10); IMMATURE GRAN PERCENT AUTO 0 % (0-1); LYMPHOCYTES ABSOLUTE AUTO 0.39 K/mm3 (0.84-5.20); LYMPHOCYTES PERCENT AUTO 6 % (21-46); MONOCYTES ABSOLUTE AUTO 0.71 K/mm3 (0.16-1.47); MONOCYTES PERCENT AUTO 11 % (4-13); Mean Corpuscular HGB 31.5 pg (26.0-34.0); Mean Corpuscular HGB Conc 30.4 g/dL (31.5-36.5); Mean Corpuscular Volume 104 fL (80-100); Mean Platelet Volume 10.8 fL (9.1-12.4); NEUTROPHILS ABSOLUTE AUTO 5.44 K/mm3 (1.96-9.15); NEUTROPHILS PERCENT AUTO 82 % (41-73); NRBC ABSOLUTE 0.02 K/mm3 (0.00-0.02); NRBC Auto 0.3 /100 WBC (0.0-0.2); Platelet Count 118 K/mm3 (150-400); RDW Coefficient Variation 17.8 % (11.7-14.2); RDW Standard Deviation 67.5 fL (35.1-46.3); Red Blood Cell Count 3.24 M/mm3 (4.30-5.90); White Blood Cell Count 6.68 K/mm3 (4.00-11.30)
[2020-07-15 03:50] LABS: Anion Gap 9 mmol/L (6-16); Blood Urea Nitrogen 62 mg/dL (8-24); Bun/Creatinine Ratio 26.2 (12.0-20.0); CO2, Blood 24 mmol/L (21-32); Calcium, Blood 9.2 mg/dL (8.5-10.1); Chloride, Blood 103 mmol/L (98-108); Creatinine, Blood 2.37 mg/dL (0.60-1.20); Glomerular Filtration Rate 28 (60-); Glucose, Blood 149 mg/dL (70-99); Magnesium, Blood 2.3 mg/dL (1.6-2.4); Phosphorus, Blood 4.7 mg/dL (2.5-4.9); Sodium, Blood 136 mmol/L (136-145)
--- NOTE | 2020-07-15 06:31 | NUR ---
SUMMARY PT HAD HYPOXIC EPISODE EARLIER IN SHIFT, SEE PREVIOUS NOTE. PT ON 4.5L VIA NC HUMIDIFIED SATS IN THE UPPER 90s. HE IS SLEEPING ON AND OFF THROUGHOUT NIGHT, HAS TROUBLE KEEPING NC IN PLACE. REPEATEDLY REINFORCED THE NEED FOR THE NC. 1 PERSON ASSIST WHEN UP, INCONTINENT AT TIMES. VITAL SIGNS NOW STABLE, CALL LIGHT IN REACH, BED IN LOW POSITION.
--- NOTE | 2020-07-15 13:44 | NUR ---
MEDICATED with milk of magnesia for constipation. No BM since admission. Pt attempting on bedside commode, has been receiving sennokot p.o.
--- NOTE | 2020-07-15 18:26 | NUR ---
SHIFT NOTE PT HAS BEEN RESTING WELL IN BED T/O THE DAY. PT APPEARS LESS CONFUSED FROM THE LAST SHIFT WORKING WITH THIS PT. PT DID REMOVE HIS O2 ONCE TODAY, SPO2 MAINTAINED AT 89% PT WAS EDUCATED AND DID NOT REMOVE HIS O2 AGAIN AFTER THAT. PT HAS BEEN UP TO BSC WAS UNABLE TO HAVE A BM ON BSC, WAS ABLE TO URINATE WHILE UP TO BSC. LOPRESSOR WAS HELD TONIGHT HAS PRESSURE WAS SOFT. PT REAMINS ALERT WITH EXPRESSIVE APHASIA.
--- NOTE | 2020-07-16 04:38 | NUR ---
SUMMARY PT COOPERATIVE AND SLEEPING MOST THE NIGHT. 02 SATS REMAIN IN THE LOWER 90s ON 5L VIA NC. CONTINUE TO REINFORCE THE IMPORTANCE OF KEEPING THE NC IN HIS NOSE. VSS AND NO ACUTE CHANGES OVERNIGHT. CALL LIGHT IS IN REACH AND BED IN LOW POSITION.
[2020-07-16 05:10] LABS: Bun/Creatinine Ratio 33.5 (12.0-20.0); Calcium, Blood 9.3 mg/dL (8.5-10.1); Creatinine, Blood 2.12 mg/dL (0.60-1.20); Potassium, Blood 4.2 mmol/L (3.5-5.5)
--- NOTE | 2020-07-16 19:47 | NUR ---
SHIFT SUMMARY PT CONTINUES TO HAVE LABORED BREATHING WITH EPIGLOTAL WHEEZING THROUGH OUT THE DAY. LUNG SOUNDS ARE CLEAR, OCCASIONAL NON PRODUCTIVE COUGH, PT REMAINS ON 5 L VIA NC, RT WAS CALLED TO GIVE PRN BREATHING TX THIS AFTERNOON, NO CHANGES WERE NOTED. O2 SATS ARE >90% AT REST. IV LASIX & BUMEX ADMISISTERED PER EMAR, FLUID RESTRICTION MAINTAINED. PT IS USING URINAL WITH NO PROBLEMS. TOLERATAING PO INTAKE. PT SAT AT THE BEDSIDE A FEW TIMES BUT WAS TOO WEAK TO TRANSFER TO [facility]. REPORT WAS GIVEN TO MICHELLE RN. CALL LIGHT IN REACH.
[2020-07-17 04:39] LABS: Bun/Creatinine Ratio 37.6 (12.0-20.0); Calcium, Blood 9.7 mg/dL (8.5-10.1); Creatinine, Blood 2.05 mg/dL (0.60-1.20); Potassium, Blood 4.8 mmol/L (3.5-5.5)
--- NOTE | 2020-07-17 05:49 | NUR ---
SHIFT SUMMARY PT A&O X3; IS QUITE CONFUSED UPON AWAKENING; VSS; AFIB NOTED ON TELE; O2 SATS >90 ON 5L NC; BIOX ALARMS FREQUENTLY, PT PULLS NC OUT OF NARES OR FIGITS W/ PROBE; HAS MOMENTS OF APNIC PERIODS, RECOVERS QUICKLY; USES URINAL AT BEDSIDE; ASSISTANCE NEEDED TO BSC FOR BM; BED ALARM ON FOR SAFETY; CALL LIGHT IN REACH; BED IN LOWEST POSITION; WILL CONTINUE TO MONITOR CLOSELY UNTIL HAND OFF TO DAY SHIFT RN.
--- NOTE | 2020-07-17 09:30 | NUR ---
POST FALL PT ASSESSED AT THIS TIME. PT IS SITTING UP IN THE CHAIR, AWAKE, ALERT, ORIENTED X3, PT DENIES ANY PAIN AT THIS TIME, NO OBVIOUS INJURIES NOTED OR REPORTED BY PT OR STAFF. VETERINARY TECHNOLOGY INSTRUCTOR & ETCHER APPRENTICE PHOTOENGRAVING WAS IN THE ROOM JUST AFTER THE FALL, THEY WERE ABLE TO ASSIST THE PT TO THE BED, PHYSICAL THERAPY WALKED HIM IN THE ROOM AFTERWARDS WITH NO PROBLEMS AND PUT HIM IN THE BEDSIDE RECLYNER. FAMILY HAS BEEN NOTIFIED, PT'S IS ON HER WAY TO SEE HIM. REPORT FILED BY VETERINARY TECHNOLOGY INSTRUCTOR, NURSING CUTTER WOODWIND REEDS NOTIFIED BY VETERINARY TECHNOLOGY INSTRUCTOR WELL. [facility] PT AT THIS TIME, VSS, CALL LIGHT IN REACH, CHAIR ALARM IS ON.
--- NOTE | 2020-07-17 19:53 | NUR ---
SHIFT SUMMARY PT CONTINUES TO BE A&O X3, HE DENIES ANY PAIN FROM THE FALL THIS AM. PT WAS PLACED ON A CPAP THIS AFTERNOON TO ASSESS BREATHING COMFORT/STATUS. HE WAS COOPERATIVE, TOLERATED THE MASK WITH NO PROBLEMS, O2 SATS REMAINED >95% @ 10/10, WITH NO O2 ADDED, HE WAS ABLE TO SLEEP COMFORTABLY FOR APPROX 2 HRS WHEN BEFORE HE WOULD WAKE EVERY 10 TO 20 MINUTES. NC PLACED WHILE PT IS AWAKE @ 3L. HE IS TOLERATING PO INTAKE, VOIDING WNL. REPORT GIVEN TO MICHELLE RN, CALL LIGHT IN REACH, CHAIR ALARM IS ON FOR SAFETY.
[2020-07-18 03:59] LABS: Bun/Creatinine Ratio 36.9 (12.0-20.0); Calcium, Blood 9.2 mg/dL (8.5-10.1); Creatinine, Blood 2.25 mg/dL (0.60-1.20)
--- NOTE | 2020-07-18 06:49 | NUR ---
SUMMARY PT WORE CPAP FOR ABOUT 2-3HRS BUT KEPT TAKING IT OFF SO HE WAS PUT BACK ON THE NC. 02 SATS IN THE MID TO UPPER 90s THROUGHOUT THE NIGHT. AMBULATES WITH ASSISTANCE TO THE BATHROOM. CONFUSED AT TIMES ESPECIALLY WHEN WAKING UP. CALL LIGHT IN REACH AND BED IN LOW POSITION.
--- NOTE | 2020-07-18 07:35 | NUR ---
ASSUMED PATIENT CARE. PATIENT SITTING COMFORTABLY IN RECLINER WITH PCT AT BEDSIDE, CONVERSING WITH NURSING STAFF. NO SIGNS OF ACUTE DISTRESS, WCTM.
--- NOTE | 2020-07-18 13:17 | NUR ---
REPORT GIVEN TO FRANSISCA ANDERSON ON MEDICAL.
--- NOTE | 2020-07-18 19:00 | NUR ---
SHIFT SUMMARY PCU TRANSFER THIS AFTERNOON. PATIENT UP 1X W/FWW TO CHAIR OR BSC. PATIENT SHORT OF BREATH WITH ACTIVITY. PATIENT WORKED WITH PT TODAY. PATIENT MAINTAINING O2 SATURATION ABOVE 92% ON 2L/NC. PATIENT HAD BM TODAY. UP IN CHAIR FOR MEALS.
[2020-07-19 05:15] LABS: Bun/Creatinine Ratio 37.2 (12.0-20.0); Calcium, Blood 9.3 mg/dL (8.5-10.1); Creatinine, Blood 2.42 mg/dL (0.60-1.20); Potassium, Blood 5.1 mmol/L (3.5-5.5)
--- NOTE | 2020-07-19 06:08 | NUR ---
PRINTER ASSISTANT SUMMARY Patient was awake all night pulling on lines and trying to crawl over the bed rails. He is a two person maximum assist to reposition in bed. Alert to self only. Patient has very poor peripheral circulation, so ear sensor was placed to get oxygenation readings. In between removing the sensor and his 2 liters of 02, Johann would rate in high 90's to 100% saturation. No void overnight, and bladder scan completed overnight showed 256 of urine. No call to hospitalist was made as this amount is below to normal amount we would straight cath for. equipment oiler informed of scan, and this RN requested a room in the Special Care Unit when one comes available.
--- NOTE | 2020-07-19 15:19 | NUR ---
Pt admitted to hospital for Acute on Chronic Systolic and Diastolic CHF. Pt's medical history and comorbidities include: CHF (Ef 30-35%), Afib, ASCVD, Moderate Aortic Regurgitation, AAA, CVA, HTN, Hyperlipidemia, DM2, Diabetic Neuropathy, CKD 3, Gout, Degenerative Joint Disease, and Hiatal Hernia. Pt resting in bed with his eyes closed and is on CPAP. Pt appears comfortable with no S/S of distress at this time. This RN did not disturb Pt at this time. Spoke with Bedside RN Jennifer and discussed case. Pt is A&OX2 and struggles with maintaining is O2 saturations. O2 saturations drop down to the 80's and increases to 90's routinely. Pt requires 2 person max assist with transfer and pivot. Pt also requires assistance with ambulation, dressing, and bathing. Pt also requires O2 via NC. Called and spoke with Pt's spouse Deirdre. Engaged in therapeutic discussion regarding goals of care including hospice. Deirdre reports hospitalist mentioned this option to her as well. Answered questions regarding hospice and educated on hospice philosophy. Deirdre reports wanting to bring Pt home and is leaning towards hospice but needs more time to consider options. She also reports plan to discuss further with Pt's PCP. Discussed Pt's code status and provided education on life sustaining measures including risk factors and implications. Deirdre reports in Pt's best interest and in his current condition she does not think Pt would not want CPR or intubation. Deirdre expresses appreciation of visit and reports no other concerns at this time. PPS 40% ADLs 4/6 NYHA Class 4 Pt appears appropriate for hospice if family chooses this option. Palliative Care will remain available.
--- NOTE | 2020-07-19 16:38 | NUR ---
SHIFT SUMMARY PATIENT VERY DYSPNEIC WITH ANY ACTIVITY. PATIENT UP TO CHAIR/BSC TWO PERSON ASSIST W/ GAIT BELT. POOR PO INTAKE. PALLIATIVE CARE CONSULTED. CODE STATUS CHANGED TO DNR. PATIENT AND CONSIDERING HOSPICE BUT NO DECISION HAS BEEN MADE AT THIS TIME. PATIENT NAPPING OFTEN TO DAY.
--- NOTE | 2020-07-19 18:03 | NUR ---
Echocardiogram using 0.60ml of Definity contrast performed.
[2020-07-20 06:35] LABS: Bun/Creatinine Ratio 39.4 (12.0-20.0); Calcium, Blood 9.2 mg/dL (8.5-10.1); Creatinine, Blood 2.41 mg/dL (0.60-1.20); Potassium, Blood 4.8 mmol/L (3.5-5.5)
--- NOTE | 2020-07-20 13:31 | NUR ---
Pt resting in bed and denies pain at this time. Pt appears dyspneic as evidenced by work of breathing and ability to speak in only 1 to 2 word sentences. Pt is pleasantly confused and reports feeling better. Ended visit to allow Pt to rest. Spoke with Bedside RN Katie and discussed case. Lasted echo resulted with EF of 10-15%. [facility] currently reviewing Pt for hospice appropriateness. Palliative Care will remain available.
--- NOTE | 2020-07-20 18:28 | NUR ---
PT TO DISCHARGE FRIDAY ON HOSPICE . PT CONTINUES TO DESATE WITH EXERTION. CALL LIGHT WITHIN REACH.
--- NOTE | 2020-07-21 03:33 | NUR ---
PRESIDENT PRACTICING UROLOGIST SUMMARY NO ACUTE CHANGES THIS SHIFT. PT DOING MUCH BETTER TONIGHT COMPARED TO PREVIOUS NIGHT HIS O2 DEMAND IS MUCH LOWER THIS MAY BE RELATED TO HIM USING THE URINAL IN BED COMPARED TO THE BSC THE PREVIOUS NIGHT. HIS MENTATION APPEARS BETTER TONIGHT WELL HIS SPEECH IS STRONGER AND MORE CLEAR. PT DENIES PAIN OR NAUSEA AND IS SLEEPING COMFORTABLY W CALL LIGHT WITHIN REACH.
[2020-07-21] MEDS ORDERED: ALBU2.5V5 INH (13:59)
[2020-07-21] MEDS ORDERED: DULCOLAX400 MG/5 M PO (14:01)
[2020-07-21] MEDS ORDERED: ONDA4ODT MM (14:02)
[2020-07-21] MEDS ORDERED: BUME1 PO (14:03)
[2020-07-21] MEDS ORDERED: TAMS.4ER PO (14:03)
[2020-07-21] MEDS ORDERED: Lisinopril2.5 MG PO (14:04)
--- NOTE | 2020-07-21 15:09 | NUR ---
IV REMOVED PRIOR TO DC. PT TOLERATED WELL. NO SS OF INFECTION NOTED. PT TO DC HOME ON HOSPICE.
--- NOTE | 2020-07-21 16:40 | NUR ---
PT DISCHARGED AT 1600 HOME ON HOSPICE. [facility] PICKED UP. PAPERS SENT HOME WITH PATIENT. IV PREVIOUSLY REMOVED.
== END 2020-07-21 16:12 | disposition hospice, home (50) | DRG 291 ==
LOC: ER 18:14 → PCU 18:15 → MEDS 07-18 14:17 → ENPENDDIS 07-21 11:35 → MEDS 07-21 16:12
PROVIDERS: Emergency Medicine; Internal Medicine; Nurse Practitioner Acute Care; ADMIT Family Medicine
PROC: 3E02340 Introduction of Influenza Vaccine into Muscle, Percutaneous Approach (ICD-10-PCS; principal; 2020-07-13)
PROC: 3E0234Z Introduction of Serum, Toxoid and Vaccine into Muscle, Percutaneous Approach (ICD-10-PCS; 2020-07-13)
DX: I13.0 Hypertensive heart and chronic kidney disease with heart failure and stage 1 through stage 4 chronic kidney disease, or unspecified chronic kidney disease (principal); I50.43 Acute on chronic combined systolic (congestive) and diastolic (congestive) heart failure; J96.21 Acute and chronic respiratory failure with hypoxia; J96.22 Acute and chronic respiratory failure with hypercapnia; J18.9 Pneumonia, unspecified organism; N17.9 Acute kidney failure, unspecified; Z87.891 Personal history of nicotine dependence; I25.10 Atherosclerotic heart disease of native coronary artery without angina pectoris; N18.30 Chronic kidney disease, stage 3 unspecified; E11.40 Type 2 diabetes mellitus with diabetic neuropathy, unspecified; E78.5 Hyperlipidemia, unspecified; I69.311 Memory deficit following cerebral infarction; K59.00 Constipation, unspecified; I48.91 Unspecified atrial fibrillation; Z23 Encounter for immunization
CPT/HCPCS: 36415; 70450; 71045; 71250; 76770; 80048; 80053; 80069; 82947; 83735; 83880; 84145; 84484; 85025; 85610; 85730; 90670; 93005; 93010; 93922; 94640; 94660; 94762; 96365; 96375; 97110; 97116; 97162; 97165; 97530; 97535; 98960; 99284-25; A9270; A9270-GY; C8929; G0008; G0009; G0378; J0696; J1940; J1956; J2405; J7040; Q2038; Q9957; U0003